=== PATIENT | female | born 2000 | race Caucasian/White ===

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

== ENCOUNTER 2021-02-09 12:18 | Outpatient (CLI) | payer MEDICAID, SELFPAY ==
[2021-02-09 12:28] VITALS: RESP 18; TEMP 36.4
[2021-02-09 12:29] VITALS: BMI 39.1
[2021-02-09 12:35] VITALS: BP 108/63; PULSE 90; RESP 18; TEMP 36.4
[2021-02-09 13:00] VITALS: BP 119/78; PULSE 81
--- NOTE | 2021-02-09 13:18 | PC.NURSE ---
Dr Hope called and reported sending pt over to Actim Prom testing. Orders to do actim prom, nst and call Dr Hope with results
[2021-02-09 13:20] VITALS: BP 125/56; PULSE 83
[2021-02-09 13:25] LABS: Actim Prom Negative
== END 2021-02-09 13:43 | disposition home or self-care (01) ==
LOC: OPOB 12:21 → OBGYN 13:29
PROVIDERS: Absent Provider Obstetrics & Gynecology; Visit Provider Obstetrics & Gynecology
DX: O26.899 Other specified pregnancy related conditions, unspecified trimester (principal); Z3A.00 Weeks of gestation of pregnancy not specified; N89.8 Other specified noninflammatory disorders of vagina
CPT/HCPCS: 59025; 80307; 82950; 84112; 84315; 85025; 87481; 87491; 87512; 87591; 87661; 87798; 87799; 99211

== ENCOUNTER 2021-03-03 13:20 | Outpatient (CLI) | payer MEDICAID, SELFPAY ==
[2021-03-03] VITALS (8 sets, daily range): BP systolic 100–118; BP diastolic 55–64; PULSE 81–106; RESP 18; TEMP 35.8; BMI 40.3
[2021-03-03 14:11] LABS: Basophils % 0.2 %; Eosinophils # 0.1 10^3/uL (0.0-0.8); Eosinophils % 0.4 %; Hematocrit 33.3 % (37.0-47.0); Hemoglobin 11.1 g/dL (11.5-15.3); Lymphocytes # 2.3 10^3/uL (1.5-6.5); Lymphocytes % 16.6 %; Mean Corpuscular HGB Conc 33.3 g/dL (30.0-36.0); Mean Corpuscular Hemoglobin 29.7 pg (28.0-34.0); Mean Platelet Volume 11.3 fL (7.4-10.4); Monocytes # 0.6 10^3/uL (0.2-0.9); Monocytes % 4.6 %; Neutrophils % 77.7 %; Nucleated Red Blood Cells % 0 %; Platelet Count 255 10^3/cmm (130-400); Red Blood Count 3.74 10^6/uL (4.1-5.3); Red Cell Distribution Width 12.9 % (12.1-15.1); White Blood Count 13.9 10^3/uL (4.5-13.0)
[2021-03-03 14:41] LABS: Alanine Aminotransferase 8 U/L (0-33); Albumin Level 3.7 g/dL (3.5-5.2); Alkaline Phosphatase 128 IU/L (35-105); Anion Gap 12.9 (5-19); Aspartate Amino Transferase 13 U/L (0-32); Blood Urea Nitrogen 4 mg/dL (6-20); Calcium 8.7 mg/dL (8.5-10.5); Carbon Dioxide 26 mmol/L (22-29); Chloride 102 mmol/L (98-107); Globulin 3.3 g/dL (1.3-4.6); Glomerular Filtration Rate 205.6 mL/min (90-130); Glucose 93 mg/dL (65-115); Osmolality Calculated 281 mOsm/kg (285-295); Potassium 3.9 mmol/L (3.5-5.1); Sodium 137 mmol/L (136-145); Total Bilirubin 0.3 mg/dL (0.15-1.2); Uric Acid 2.9 mg/dL (2.4-5.7)
[2021-03-03 14:49] LABS: Add Urine Microscopic? YES; Bilirubin Urine Neg (Negative); Blood Urine Neg (Negative); Glucose Urine UA Norm (Normal); Ketones Urine Negative (Negative); Leukocyte Esterase Urine Trace (Negative); Nitrate Urine Negative (Negative); Protein Urine Neg (Negative); Specific Gravity, Urine 1.015 (1.005-1.030); Urine Appearance SL Hazy (CLEAR); Urine Color Yellow (Yellow); Urobilinogen Urine 1 mg/dL (Negative); pH Urine 5 (5-7)
[2021-03-03 15:11] LABS: Urine Creatinine 138 mg/dL (28-217); Urine Protein Random 10 mg/dL
[2021-03-03 15:14] LABS: UPRO/UCREAT Ratio 0.07 mg/mg CR
[2021-03-03 15:22] LABS: Bacteria Urine 1+ /hpf; Mucus Urine 1+ /hpf; RBC Urine 0-4 /hpf (0-2); Squamous Epithelial Cell Urine 15-25 /hpf (0-5)
== END 2021-03-03 15:40 | disposition home or self-care (01) ==
LOC: OPOB 13:26 → OBGYN 13:27
PROVIDERS: Visit Provider Obstetrics & Gynecology
DX: O16.9 Unspecified maternal hypertension, unspecified trimester (principal); Z3A.00 Weeks of gestation of pregnancy not specified
CPT/HCPCS: 59025; 80053; 81000; 81001; 82570; 84156; 84550; 85025; 99211

== ENCOUNTER → 2021-03-10 11:10 | Outpatient (BNVA) | payer MEDICAID, SELFPAY | PROVIDERS: Visit Provider Obstetrics & Gynecology | DX: O09.219 Supervision of pregnancy with history of pre-term labor, unspecified trimester (principal); Z3A.00 Weeks of gestation of pregnancy not specified | CPT/HCPCS: 81000 ==

== ENCOUNTER 2021-03-24 17:53 | Outpatient (CLI) | payer MEDICAID, SELFPAY ==
[2021-03-24 17:50] VITALS: BMI 40.3
[2021-03-24 18:02] VITALS: TEMP 36.2
[2021-03-24 18:03] VITALS: BP 115/69; PULSE 118
--- NOTE | 2021-03-24 18:20 | USR_ITS ---
PROCEDURE INFORMATION: Exam: US Biophysical Profile Without Non-Stress Test Exam date and time: 03/24/2021 6:30 PM Age: 20 years old Clinical indication: status abnormalities: ; movements, decreased; Fetus 1; Third trimester (28 wks 0 days until delivery); ; Additional info: Decreased movement TECHNIQUE: Imaging protocol: US biophysical profile without non-stress testing. COMPARISON: US OB >= 14 weeks fetus [facility] 12/29/2020 4:08 PM FINDINGS: BIOPHYSICAL PROFILE: Breathin/2 Gross body movements: 2/2 tone: 2/2 Qualitative amniotic fluid: 2/2 Biophysical Profile Score: 8/8 US/US OB BPP wo NST 60394 IMPRESSION: 1. Biophysical profile score is 8 out of 8. 2. heart beat 144 bpm.
[2021-03-24 18:25] VITALS: BP 105/68; PULSE 109
[2021-03-24 18:33] VITALS: BP 103/69; PULSE 88
[2021-03-24 18:48] VITALS: BP 104/67; PULSE 86
[2021-03-24 18:56] LABS: Basophils % 0.2 %; Eosinophils # 0.1 10^3/uL (0.0-0.8); Eosinophils % 0.5 %; Hematocrit 34.2 % (37.0-47.0); Hemoglobin 11.1 g/dL (11.5-15.3); Lymphocytes # 2.1 10^3/uL (1.5-6.5); Lymphocytes % 16.7 %; Mean Corpuscular HGB Conc 32.5 g/dL (30.0-36.0); Mean Corpuscular Hemoglobin 28.9 pg (28.0-34.0); Mean Corpuscular Volume 89.1 fL (81-99); Mean Platelet Volume 11.3 fL (7.4-10.4); Monocytes # 0.7 10^3/uL (0.2-0.9); Monocytes % 5.8 %; Neutrophils % 76.2 %; Nucleated Red Blood Cells % 0 %; Platelet Count 239 10^3/cmm (130-400); Red Blood Count 3.84 10^6/uL (4.1-5.3); Red Cell Distribution Width 12.9 % (12.1-15.1); White Blood Count 12.5 10^3/uL (4.5-13.0)
[2021-03-24 19:16] LABS: Alanine Aminotransferase 10 U/L (0-33); Albumin Level 3.6 g/dL (3.5-5.2); Alkaline Phosphatase 130 IU/L (35-105); Aspartate Amino Transferase 14 U/L (0-32); Blood Urea Nitrogen 5 mg/dL (6-20); Calcium 8.7 mg/dL (8.5-10.5); Carbon Dioxide 23 mmol/L (22-29); Chloride 101 mmol/L (98-107); Globulin 3.6 g/dL (1.3-4.6); Glomerular Filtration Rate 286.6 mL/min (90-130); Glucose 106 mg/dL (65-115); Osmolality Calculated 278 mOsm/kg (285-295); Sodium 135 mmol/L (136-145); Total Bilirubin 0.3 mg/dL (0.15-1.2); Total Protein 7.2 g/dL (6.6-8.7); Uric Acid 2.5 mg/dL (2.4-5.7)
[2021-03-24 19:26] LABS: Add Urine Microscopic? NO; Charge for UA Resulting for Rev
[2021-03-24 19:28] LABS: Urine Appearance Clear (CLEAR); Urine Color Yellow (Yellow); pH Urine 5 (5-7)
[2021-03-24 19:29] LABS: Bilirubin Urine 1+ (Negative); Blood Urine Neg (Negative); Glucose Urine UA Norm (Normal); Ketones Urine 1+ (Negative); Leukocyte Esterase Urine Trace (Negative); Nitrate Urine Negative (Negative); Protein Urine Trace (Negative); Urobilinogen Urine 8 mg/dL (Negative)
[2021-03-24 19:48] LABS: Urine Creatinine 229 mg/dL (28-217)
[2021-03-24 19:49] LABS: UPRO/UCREAT Ratio 0.14 mg/mg CR; Urine Protein Random 33 mg/dL
[2021-03-24 20:00] VITALS: BP 104/67; PULSE 86; RESP 16; TEMP 36.3
== END 2021-03-24 20:05 | disposition home or self-care (01) ==
LOC: OPOB 17:54 → OBGYN 17:55
PROVIDERS: Obstetrics & Gynecology; Visit Provider Obstetrics & Gynecology
DX: O26.899 Other specified pregnancy related conditions, unspecified trimester (principal); Z3A.00 Weeks of gestation of pregnancy not specified; Z03.89 Encounter for observation for other suspected diseases and conditions ruled out
CPT/HCPCS: 59025; 76819; 80053; 81000; 81003; 82570; 84156; 84550; 85025; 99211

== ENCOUNTER → 2021-04-01 10:00 | Outpatient (BNVA) | payer MEDICAID, SELFPAY | PROVIDERS: Visit Provider Obstetrics & Gynecology | DX: O09.213 Supervision of pregnancy with history of pre-term labor, third trimester (principal); O34.219 Maternal care for unspecified type scar from previous cesarean delivery; F12.90 Cannabis use, unspecified, uncomplicated | CPT/HCPCS: 81000; 87081 ==

== ENCOUNTER → 2021-04-08 10:54 | Outpatient (BNVA) | payer MEDICAID, SELFPAY | PROVIDERS: Visit Provider Obstetrics & Gynecology | DX: O99.323 Drug use complicating pregnancy, third trimester (principal); O09.213 Supervision of pregnancy with history of pre-term labor, third trimester; F12.90 Cannabis use, unspecified, uncomplicated; O34.219 Maternal care for unspecified type scar from previous cesarean delivery; Z3A.36 36 weeks gestation of pregnancy | CPT/HCPCS: 81000 ==

== ENCOUNTER → 2021-04-15 08:12 | Outpatient (BNVA) | payer MEDICAID, SELFPAY | PROVIDERS: Visit Provider Obstetrics & Gynecology | DX: O09.213 Supervision of pregnancy with history of pre-term labor, third trimester (principal); O09.899 Supervision of other high risk pregnancies, unspecified trimester; Z3A.00 Weeks of gestation of pregnancy not specified | CPT/HCPCS: 81000 ==

== ENCOUNTER 2021-04-18 21:17 | Outpatient (CLI) | payer MEDICAID, SELFPAY ==
[2021-04-18 21:33] VITALS: BP 121/76; PULSE 114
[2021-04-18 21:55] VITALS: BMI 41.3
[2021-04-18 22:11] VITALS: BP 135/76; PULSE 107
[2021-04-18 22:15] VITALS: BP 135/76; PULSE 107; RESP 18
[2021-04-18 22:31] LABS: Nitrazine Paper, PH Negative
== END 2021-04-18 22:21 | disposition home or self-care (01) ==
LOC: OPOB 21:19 → OBGYN 21:20
PROVIDERS: Visit Provider Obstetrics & Gynecology
DX: O26.899 Other specified pregnancy related conditions, unspecified trimester (principal); Z3A.00 Weeks of gestation of pregnancy not specified; N89.8 Other specified noninflammatory disorders of vagina
CPT/HCPCS: 59025; 83986; 99211

== ENCOUNTER → 2021-04-22 09:54 | Outpatient (BNVA) | payer MEDICAID, SELFPAY | PROVIDERS: Visit Provider Obstetrics & Gynecology | DX: O34.219 Maternal care for unspecified type scar from previous cesarean delivery (principal); O09.213 Supervision of pregnancy with history of pre-term labor, third trimester; F12.90 Cannabis use, unspecified, uncomplicated; O99.323 Drug use complicating pregnancy, third trimester; Z3A.38 38 weeks gestation of pregnancy; Z20.822 Contact with and (suspected) exposure to COVID-19 | CPT/HCPCS: 81000; 87635 ==

== ENCOUNTER 2021-04-27 05:35 | Inpatient (IN) | payer MEDICAID, SELFPAY ==
--- NOTE | 2021-04-22 12:01 | P.ANESASSM_ITS ---
Pre-Anesthetic Assessment Pre-Anesthetic Assessment: Height/Weight: Height 1.68 m Proposed Procedure: Operation Date: 04/27/21 07:00 Proposed Procedures p Section Repeat 70568 O34.219(Not Applicable) - Ying Hope MD Was Beta Tana taken within 24 hours: N/A Was Clonidine taken within 24 hours: N/A Social: Social History: No alcohol and No tobacco Comment: h/o yadira Exam: Pre-Anes Outpt Exam: alert, oriented x 3, clear to auscultation bilaterally and regular rate & rhythm Airway: Submandibular: WNL Cervical ROM: WNL MP: 2 Dentition: Full Additional comments: Tongue ring (asked to remover prior to surgery) History/ROS: No significant history except as noted Anesthetic Plan: ASA status: 2 Anesthesia: Regional (specify below) Other: Discussed labor epidural and SAB Risk of > 500 ml blood loss (7ml/kg in children): Yes, adequate IV access and fluids planned PFSH Anesthesia PFSH: Medical History History of labor Surgical History History of section (11/08/18) LTCS performed for breech presentation at [facility] History of cholecystectomy Family History Grandmother Diabetes maternal Stroke maternal Heart attack maternal Denies family history of Ovarian cyst CAD (coronary artery disease) Clotting disorder Hyperlipidemia Chronic kidney disease (CKD) Breast cancer Anesthesia complication Bleeding disorder Hypertension Female Reproductive History: Date of last menstrual period: 07/26/20 Data Anesthesia Cardiac Studies: No Data to Display
[2021-04-27] VITALS (27 sets, daily range): BP systolic 97–166; BP diastolic 49–86; PULSE 51–97; RESP 15–18; TEMP 36.3–37; O2SAT 98–100; BMI 41.9
[2021-04-27 06:30] LABS: Amphetamines Screen Urine Negative (Negative); Barbiturates Screen Urine Negative (Negative); Benzodiazepines Screen Urine Negative (Negative); Cocaine Screen Urine Negative (Negative); Opiate Screen Urine Negative (Negative); PCP Screen Urine Negative (Negative); THC Screen Urine Negative (Negative)
[2021-04-27 06:35] LABS: Basophils % 0.3 %; Eosinophils # 0.1 10^3/uL (0.0-0.8); Eosinophils % 0.4 %; Hematocrit 31.7 % (37.0-47.0); Hemoglobin 10.3 g/dL (11.5-15.3); Lymphocytes # 2.7 10^3/uL (1.5-6.5); Lymphocytes % 20.9 %; Mean Corpuscular HGB Conc 32.5 g/dL (30.0-36.0); Mean Corpuscular Hemoglobin 27.5 pg (28.0-34.0); Mean Corpuscular Volume 84.8 fL (81-99); Mean Platelet Volume 11.4 fL (7.4-10.4); Monocytes # 0.7 10^3/uL (0.2-0.9); Monocytes % 5.2 %; Neutrophils % 72.7 %; Nucleated Red Blood Cells % 0 %; Platelet Count 244 10^3/cmm (130-400); Red Blood Count 3.74 10^6/uL (4.1-5.3); Red Cell Distribution Width 13.1 % (12.1-15.1); White Blood Count 13.1 10^3/uL (4.5-13.0)
[2021-04-27] MEDS: famotidine 20 mg/2 mL INJ IVP (06:36)
[2021-04-27] MEDS: citric acid-sodium citrate 30 mL UDC PO (06:36)
[2021-04-27] MEDS: lactated ringers 1,000 ML 999 ML IV (06:36)
[2021-04-27] MEDS: metoclopramide 5 mg/mL SDV 2 mL 10 MG IVP (06:36)
--- NOTE | 2021-04-27 06:57 | W.PM.OPSUD ---
Surgery/Procedure H&P Update DATE OF PROCEDURE: April 27, 2021 DATE H&P PERFORMED: 04/22/21 H&P UPDATE INFORMATION: I have reviewed H&P completed within last 30 days, I have examined patient prior to procedure and No changes to prior documentation PLANNED PROCEDURE: Operation Date: 04/27/21 07:00 Proposed Procedures p Section Repeat 12424 O34.219(Not Applicable) - Ying Hope MD
--- NOTE | 2021-04-27 08:04 | PM.OP ---
Operative Report Date of procedure: April 27, 2021 Pre-op Diagnosis: previous x1, breech presentation Post-op diagnosis: same Post-op Diagnosis: IUp at 39 2/7 weeks, same with heart shaped uterus Post-op Findings: term female in cephalic presentation Procedure Done: repeat Specimens removed/disposition: placenta- discarded Pathology: none sent Anesthesia: Other (spinal) Estimated blood loss (mL): 300 IV fluids (mL): 1,600 Urine output (mL): 100 Complications: none Condition: stable Disposition: PACU Brief History: The patient is a at 39 2/7 Procedure: The patient was taken to the operating room where spinal anesthesia was administered and found to be adequate. She was prepped and draped in the normal sterile fashion in the dorsal supine position with a leftward tilt. A Pfannenstiel skin incision was made and carried down to the underlying layer of fascia. The fascia was nicked in the midline and extended laterally with the Corral scissors. The fascia was then tented up and the rectus muscles dissected off sharply. The rectus muscles were and the peritoneum entered bluntly with the digit. The peritoneal incision was extended superiorly and inferiorly with good visualization of the bladder. The Juventino O retractor was placed. It was clear of any bowel or omentum. The bladder flap was created sharply with the Metzenbaum scissors. A low transverse uterine incision was made and carried down to the bag of water. The bag of water was ruptured and the uterine incision extended cephalocaudad. The breech was grasped and brought through the incision, followed by the body and head. The nose and mouth were bulb suctioned. The baby was allowed to rest, while being dried, for 1 minute and then the cord was clamped and cut. The baby was handed to the waiting nurses. The placenta was delivered by expression. The uterus was exteriorized and cleared of all clots and debris. The uterine incision was closed with 0 Vicryl in a running fashion. A second imbricating layer of 3-0 Monocryl was used to close the uterus. The bladder flap was closed with 3-0 Monocryl. There was excellent hemostasis. The Juventino O retractor was removed. The uterus was returned to the abdomen. The peritoneum was closed with 3-0 Monocryl, incorporating the rectus muscle. The fascia was closed with 0 Vicryl in 2 separate sutures overlapping in the midline. The skin was closed with absorbable natali. Apgars on baby 8 at 1 minute and 9 at 5 minutes. weight 8 pounds 12 ounces. Mother and baby were stable post delivery.
[2021-04-27] MEDS: lactated ringers 1,000 ML 125 ML IV (09:05)
[2021-04-27] MEDS: ketorolac 30 mg/mL INJ IVP ×2 (10:23→16:38)
[2021-04-27] MEDS: HYDROcodone-acetaminophen 5-325 mg Tablet PO (14:33)
[2021-04-27] MEDS: docusate sodium 100 mg Capsule PO (16:38)
[2021-04-27] MEDS: sodium chloride 0.9% 500 ML 999 ML IV (16:40)
[2021-04-27] MEDS: dextrose 5%-lactated ringers 1,000 ML 125 ML IV (17:14)
--- NOTE | 2021-04-27 17:20 | PC.NURSE ---
Pt ambulating in hallway and around nurses station x3 laps. Pt tolerated well, had a slight complaint of feeling dizzy but was tolerable and did not effect her ambulation.
[2021-04-27] MEDS: FUROsemide 10 mg/mL SDV 2mL 5 MG IVP (18:39)
[2021-04-27] MEDS: ibuprofen 800 mg tablet PO (20:47)
[2021-04-27 21:15] LABS: Hemoglobin 8.6 g/dL (11.5-15.3); Mean Corpuscular HGB Conc 31.9 g/dL (30.0-36.0); Mean Corpuscular Hemoglobin 27.8 pg (28.0-34.0); Mean Corpuscular Volume 87.4 fL (81-99); Mean Platelet Volume 11.9 fL (7.4-10.4); Platelet Count 196 10^3/cmm (130-400); Red Blood Count 3.09 10^6/uL (4.1-5.3); Red Cell Distribution Width 13.3 % (12.1-15.1); White Blood Count 11.7 10^3/uL (4.5-13.0)
[2021-04-28 04:00] VITALS: BP 111/70; PULSE 73; RESP 17; TEMP 36.9
[2021-04-28] MEDS: HYDROcodone-acetaminophen 5-325 mg Tablet PO ×3 (04:11→12:27)
[2021-04-28] MEDS: docusate sodium 100 mg Capsule PO ×2 (08:05→18:43)
[2021-04-28] MEDS: prenatal vitamin Capsule 1 CAP PO (08:05)
[2021-04-28] MEDS: ibuprofen 800 mg tablet PO ×3 (08:05→20:04)
--- NOTE | 2021-04-28 10:25 | P.PN_ITS ---
Subjective Subjective: Interval history: The patient is doing well this morning. She has had her catheter removed and she has showered. she is tolerating a regular diet, she is ambulating and her pain is well controlled. Medications: Reviewed: Yes Vitals/I&O/Wt Last Vital Signs Temp 98.5 F 04/28/21 04:00 Pulse 73 04/28/21 04:00 Resp 17 04/28/21 04:00 BP 111/70 04/28/21 04:00 Pulse Ox 98 04/27/21 09:50 04/27/21 04/28/21 04/28/21 22:59 06:59 14:59 Output Total 780 / 1680 600 / 2280 400 / 400 Balance -780 / 920 -600 / 320 -400 / -400 Weight last 48 hrs Weight 260 lb Physical Exam Const: COMMON NORMALS: no acute distress, average body habitus, patient oriented x3, no limitations, healthy appearing, alert and well nourished GENERAL APPEARANCE: cooperative, comfortable, well kempt and well developed ORIENTATION/CONSCIOUSNESS: Yes awake, Yes oriented to person, Yes oriented to place and Yes oriented to time Neck/C-Spine: COMMON NORMALS: full ROM and supple Resp: COMMON NORMALS: normal respiratory effort EFFORT & INSPECTION: Yes able to speak in complete sentences GI: COMMON NORMALS: Soft to palpation and non-tender PALPATION: Yes Soft to palpation Extremity: COMMON NORMALS: no clubbing, cyanosis or edema and no calf tenderness Neuro: COMMON NORMALS: patient oriented x3 SENSORIUM/ORIENTATION: Yes alert, Yes oriented to person, Yes oriented to place and Yes oriented to time Psych: APPEARANCE: Yes well kempt Urinary Catheter Management^: Bird: Cath Placed During This Visit: yes, but has since been removed by the nurse Reason for Continuing Indwelling Catheter: Perioperative Use in Selected Surgeries Urinary Catheter Date of Insertion: 04/27/21 Urinary Catheter Time of Insertion: 07:15 Time Urinary Catheter Discontinued: 22:30 Data : 04/27/21 20:59 A&P Assessment and plan (1) state: Status: Acute Attestations Medical Necessity Statement*: The patient had a repeat Coding Level of Care Code Acute Special Education Paraprofessional for Chg Fwd Diagnoses state Z39.2
[2021-04-28 11:13] VITALS: BP 98/65; PULSE 75; RESP 16; TEMP 36.9
[2021-04-28] MEDS: simethicone 80 mg Chew PO ×2 (11:18→18:43)
[2021-04-28 16:25] VITALS: BP 113/70; PULSE 81; RESP 16; TEMP 36.7
[2021-04-28 21:24] VITALS: BP 133/80; PULSE 82; RESP 18; TEMP 36.8
[2021-04-29 00:28] VITALS: RESP 18
[2021-04-29] MEDS: oxyCODONE-APAP 5-325 mg Tablet PO ×2 (00:28→08:30)
[2021-04-29] MEDS: simethicone 80 mg Chew PO (00:28)
[2021-04-29 04:00] VITALS: BP 108/70; PULSE 92; TEMP 36.7; O2SAT 98
--- NOTE | 2021-04-29 07:52 | PM.DCS ---
Discharge Providers Date of Admission: 04/27/21 05:35 Date of Discharge: April 29, 2021 Attending Provider at Admission: Ying Hope MD Attending Provider at Discharge: Ying Hope MD Diagnoses at Discharge Discharge Diagnosis (1) state: Status: Acute Reason for Visit Reason for Visit: repeat c section Hospital Course Hospital Course The patient was admitted for repeat . She did well postoperatively and was ready for discharge on day #2 Physical Exam Urinary Catheter Management^: Bird: Cath Placed During This Visit: yes, but has since been removed by the nurse Reason for Continuing Indwelling Catheter: Perioperative Use in Selected Surgeries Urinary Catheter Date of Insertion: 04/27/21 Urinary Catheter Time of Insertion: 07:15 Time Urinary Catheter Discontinued: 22:30 Discharge Data Vitals: Last Vital Signs Temp 98.1 F 04/29/21 04:00 Pulse 92 04/29/21 04:00 Resp 18 04/29/21 00:28 BP 108/70 04/29/21 04:00 Pulse Ox 98 04/29/21 04:00 Discharge Plan Discharge Patient Disposition: Home Condition: Stable Prescriptions: New hydrocodone-acetaminophen 5-325 mg Tablet 1 tab PO Q4H PRN (Reason: Moderate To Severe Pain) Qty: 30 RF: 0 Continued Vitafol Gummies 3.33 mg iron- 0.33 mg tablet,chewable 1 tab PO BID@ RF: 0 prenat.vits,kyung,[id number] Tablet 1 tab PO DAILY RF: 0 Discharge Orders: Discharge Order (Routine); Ordered 04/29/21 Ordered By: Ying Hope Referrals: Ying Hope MD [Physician] - 05/03/21 2:45 pm (* Your incision check appointment is on 05/03/2021 at 2:45pm * Your 6 week appointment is on 06/07/2021 at 1:30pm) Patient Instructions: Depression (GEN), Pre-eclampsia and Eclampsia (DC), Bleeding (DC), OB WHC, OB Discharge Report, OB Food/Drug Interaction Guide, Opioid Safety, OB Home Care, OB Proud Parent Packet Discharge Attestations Time Spent in Discharge Care*: less than 30 min Quality Metrics Clinical Quality Measures During this hospital stay, did patient experience: None Coding Level of Care Code Acute Chg FW DC note Diagnoses state Z39.2
[2021-04-29 08:30] VITALS: RESP 17
[2021-04-29] MEDS: prenatal vitamin Capsule 1 CAP PO (08:30)
[2021-04-29] MEDS: docusate sodium 100 mg Capsule PO (08:30)
[2021-04-29] MEDS: ibuprofen 800 mg tablet PO (08:30)
[2021-04-29 10:58] VITALS: BP 114/73; PULSE 78; RESP 15; TEMP 36.9; O2SAT 95
== END 2021-04-29 11:29 | disposition home or self-care (01) | DRG 788 ==
PROVIDERS: Admitting Provider Obstetrics & Gynecology; Visit Provider Obstetrics & Gynecology
PROC: 10D00Z1 Extraction of Products of Conception, Low, Open Approach (ICD-10-PCS; CPT 59514; principal; 2021-04-27 07:00)
DX: O34.211 Maternal care for low transverse scar from previous cesarean delivery (principal); O32.1XX0 Maternal care for breech presentation, not applicable or unspecified; Z3A.39 39 weeks gestation of pregnancy; Z37.0 Single live birth; Z87.51 Personal history of pre-term labor
CPT/HCPCS: 36415; 51702; 59025; 59409; 80306; 85025; 85027; 96374; 96375; J1885; J1940; J2274; J2370; J2405; J2765; J3490; J7040

== ENCOUNTER 2022-06-08 18:06 | Emergency (ER) | payer MEDICAID, SELFPAY ==
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
[2022-06-08 18:11] VITALS: BP 133/97; PULSE 63; RESP 16; TEMP 36.8; O2SAT 100; BMI 35.5
[2022-06-08 18:19] VITALS: PULSE 58
[2022-06-08 18:21] VITALS: BP 133/97; PULSE 63; RESP 16; TEMP 36.8; O2SAT 100
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
--- NOTE | 2022-06-08 18:44 | XRR_ITS ---
PROCEDURE INFORMATION: Exam: XR Left Foot Exam date and time: 06/08/2022 6:50 PM Age: 21 years old Clinical indication: Pain; Foot; Left; Additional info: Injury TECHNIQUE: Imaging protocol: Radiologic exam of the Left foot. Views: 3 or more views. COMPARISON: CR (LOW EXM, ) 06/08/2022 6:19 PM FINDINGS: Bones/joints: Transverse fractures through the proximal diaphyses of the 1st and 2nd metatarsal. There is also a transverse fracture through the medial cuneiform. There is malalignment of the 1st and 2nd metatarsal space. Soft tissues: Soft tissue swelling with wounds along the dorsal foot. XR/XR foot LT min 3V* [id number] IMPRESSION: Fractures through the proximal 1st and 2nd metatarsals as well as the medial cuneiform. There is malalignment of the 1st and 2nd metatarsal space which raises suspicion for underlying Lisfranc injury.
[2022-06-08] MEDS: ceFAZolin 2,000 mg SDV 2000 MG IVP (19:04)
[2022-06-08 20:27] VITALS: BP 124/82; PULSE 83; RESP 18; O2SAT 99
[2022-06-08 20:55] VITALS: BP 138/75; PULSE 75; O2SAT 100
--- NOTE | 2022-06-09 09:54 | DCPLANNER ---
Addendum entered by Marah Lantigua 06/15/22 11:13: Patient had a follow up appointment scheduled for 06.13.22 with ortho - patient did attend appointment. Addendum entered by Marah Lantigua 06/10/22 13:44: Patient has a follow up appointment scheduled for Monday, June 13, 2022 at 9:[address] Sanford at ortho. Clinic will call patient with appointment information. Original Note: trauma program manager had message to schedule a follow up appointment for patient with ortho. trauma program manager sent patients information to the front office staff at ortho. Patients information will be printed and reviewed. Clinic will call patient with appointment information.
== END 2022-06-08 20:45 | disposition home or self-care (01) ==
PROVIDERS: Emergency Provider Emergency Medicine
DX: S92.312A Displaced fracture of first metatarsal bone, left foot, initial encounter for closed fracture (principal); S92.322A Displaced fracture of second metatarsal bone, left foot, initial encounter for closed fracture; S92.242A Displaced fracture of medial cuneiform of left foot, initial encounter for closed fracture; S91.312A Laceration without foreign body, left foot, initial encounter; V86.65XA Passenger of 3- or 4- wheeled all-terrain vehicle (ATV) injured in nontraffic accident, initial encounter
CPT/HCPCS: 12004; 29515; 73610; 73630; 96374; 99284; E0114

== ENCOUNTER 2022-06-12 12:26 | Emergency (ER) | payer MEDICAID, SELFPAY ==
[2022-06-12 12:36] VITALS: PULSE 92; RESP 14; TEMP 36.8; O2SAT 98; BMI 35.5
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
== END 2022-06-12 13:13 | disposition home or self-care (01) ==
PROVIDERS: Emergency Provider Physician Assistant
DX: S92.902A Unspecified fracture of left foot, initial encounter for closed fracture (principal); V86.99XA Unspecified occupant of other special all-terrain or other off-road motor vehicle injured in nontraffic accident, initial encounter
CPT/HCPCS: 99283

== ENCOUNTER 2022-06-30 12:41 | Day surgery (SDC) | payer MEDICAID, SELFPAY ==
[2022-06-29 11:37] VITALS: BMI 35.5
[2022-06-30] VITALS (8 sets, daily range): BP systolic 108–141; BP diastolic 70–94; PULSE 73–110; RESP 16–18; TEMP 36.7–37.6; O2SAT 95–100
--- NOTE | 2022-06-30 | SCC_ITS ---
Procedure done: 1. Open reduction internal fixation left first metatarsal CPT 50426 2. Open reduction internal fixation left second metatarsal CPT 92466 3 minutes 47 seconds of fluoroscopic guidance, for a cumulative dose of 5.282 mGy, was provided to Dr. Sanford by the radiology department. C-arm images of the LEFT foot were saved for the patient's permanent record. [facility]
[2022-06-30] MEDS: sodium chloride 0.9% 1,000 ML 30 ML IV (13:08)
[2022-06-30] MEDS: CELEcoxib 200 mg Capsule 400 MG PO (13:10)
[2022-06-30] MEDS: gabapentin 300 mg Capsule PO (13:10)
[2022-06-30 13:20] LABS: OR HCG Qualitative Urine Negative (Negative)
--- NOTE | 2022-06-30 13:41 | SUR.PREOP ---
1335-time out was completed at bedside with Dr. Kaur. Block was performed on patient in preop room. Patient tolerated well. VS remained within normal limits.
--- NOTE | 2022-06-30 13:41 | ANES.PREANE2 ---
Pre-Anesthetic Assessment Height/Weight: Height 1.68 m Weight 99.79 kg Temp Pulse Resp BP Pulse Ox O2 Del Method 99.7 F H 73 17 141/79 100 06/30/22 12:50 06/30/22 12:50 06/30/22 12:50 06/30/22 12:50 06/30/22 12:50 06/30/22 12:55 Preop Diagnosis: Left foot first and second metatarsal fractures displaced Operation Date: 06/30/22 13:50 Proposed Procedures p ORIF left first metatarsal CPT 37128. 2. ORIF left second metatarsal CPT 34902. 3. Possible Lisfranc ORIF CPT 66814,S92.312A(Left) - Matthias Sanford DPM Familial anesthetic complications: none Was Beta Tana taken within 24 hours: N/A Was Clonidine taken within 24 hours: N/A Last intake: Intake Last Liquid Date 06/30/22 Last Liquid Time 09:00 Last Solid Date 06/29/22 Last Solid Time 21:00 Social Tobacco (vapes) and No alcohol Exam alert, oriented x 3, clear to auscultation bilaterally and regular rate & rhythm Airway Mallampati: Class I Dentition: chipped Pulmonary Asthma (as child) Anesthetic Plan ASA status: 1 Anesthesia: General and Regional (specify below) (popliteal/adductor) Risk of > 500 ml blood loss (7ml/kg in children): No Medications/Allergies Home Medications Medication Instructions Recorded Confirmed Last Taken Type Knee Scooter #1 ea 06/13/22 06/13/22 Unknown Rx hydrocodone 10 mg-acetaminophen 1 tab PO Q6H Post op pain 7 days 06/30/22 06/30/22 Unknown Rx 325 mg tablet #28 tabs Allergies Allergy/AdvReac Type Severity Reaction Status Date / Time No Known Allergies Allergy Verified 06/30/22 12:53 Current Medications Generic Name Dose Route Start Last Admin Trade Name Freq PRN Reason Stop Dose Admin Sodium Chloride 1,000 mls @ 30 mls/hr 06/30/22 12:45 06/30/22 13:08 Sodium Chloride 0.9% IV 07/01/22 12:44 30 mls/hr .Q24H MARVA Administration PFSH Anesthesia Medical History History of labor Surgical History History of section (11/08/18) LTCS performed for breech presentation at [facility] History of cholecystectomy Family History Grandmother Diabetes maternal Stroke maternal Heart attack maternal Denies family history of Ovarian cyst CAD (coronary artery disease) Clotting disorder Hyperlipidemia Chronic kidney disease (CKD) Breast cancer Anesthesia complication Bleeding disorder Hypertension Social History Smoking and tobacco status: never smoked Female Reproductive History Date of last menstrual period: 07/26/20 Data Anesthesia Cardiac Studies: No Data to Display
--- NOTE | 2022-06-30 13:42 | ANES.PROC ---
Anesthesia Procedures Procedure/Date: 06/30/22 Nerve Block ^: Nerve Block 1: Main Anesthesia: general anesthesia Time Out Performed: Yes Consent: requested by attending/covering physician, from patient, risks and benefits reviewed and patient agrees to proceed Nerve block location: adductor canal (L) and popliteal (L) Anesthesia monitors applied: pulse oximetry, EKG, BP cuff and oxygen Nerve block position: supine Anesthetic Used: ropivicaine 0.5% (30 ml) and with decadron (4 mg) Ultrasound used to: recognize landmarks and visualize and ID femerol nerve Nerve Stimulator Used?: No Interscalene/Femoral BLK: 4 stimuplex 21 g needle used for position and inplane approach, visualize local anesthetic spread and no vascular puncture identified Injection: neg aspiration of heme and paresthesia +/- Patient Tolerated Procedure: well Complications: none Additional Comments: 20 ml injected into popliteal space, 10 ml injected into adductor canal
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
[2022-06-30] MEDS: ceFAZolin 2,000 MG in sodium chloride 0.9% (plus) 50 ML 100 MG IV (14:47)
--- NOTE | 2022-06-30 16:34 | XR_ITS ---
WS: [id number] Left foot, 3 views, 06/30/2022 Clinical Data: Post op Comparison: Left foot, 06/08/2022. Findings: There is internal fixation of the fracture of the base of the left first metatarsal with a medial sandra te and screws. There is a long orthopedic pin reducing the fracture of the left second metatarsal. A fiberglass splint encircles the left foot. XR/XR foot LT min 3V* [id number] Impression: Internal fixation of fractures of the bases of the left first and second metata rsals.
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
== END 2022-06-30 17:28 | disposition home or self-care (01) ==
PROVIDERS: Anesthesiology; Visit Provider Podiatrist Foot & Ankle Surgery
PROC: (CPT 28485; principal; 2022-06-30 13:40)
PROC: (CPT 28485; 2022-06-30 13:40)
DX: S92.312A Displaced fracture of first metatarsal bone, left foot, initial encounter for closed fracture (principal); S92.322A Displaced fracture of second metatarsal bone, left foot, initial encounter for closed fracture; W23.0XXA Caught, crushed, jammed, or pinched between moving objects, initial encounter
CPT/HCPCS: 28485 ×2; 73630; 76000; 81025; 84703; C1713; J1100; J1170; J1200; J2250; J2405; J2704; J2795; J3010; J7030

== ENCOUNTER → 2022-07-06 13:18 | Outpatient (BNVA) | payer MEDICAID, SELFPAY | PROVIDERS: Visit Provider Podiatrist Foot & Ankle Surgery | DX: S92.322A Displaced fracture of second metatarsal bone, left foot, initial encounter for closed fracture (principal); S92.312A Displaced fracture of first metatarsal bone, left foot, initial encounter for closed fracture; X58.XXXA Exposure to other specified factors, initial encounter | CPT/HCPCS: 73620; 73630 ==

== ENCOUNTER → 2022-07-13 11:06 | Outpatient (BNVA) | payer MEDICAID, SELFPAY | PROVIDERS: Visit Provider Podiatrist Foot & Ankle Surgery | DX: S92.322A Displaced fracture of second metatarsal bone, left foot, initial encounter for closed fracture (principal); S92.312A Displaced fracture of first metatarsal bone, left foot, initial encounter for closed fracture; X58.XXXA Exposure to other specified factors, initial encounter | CPT/HCPCS: 73630 ==

== ENCOUNTER 2022-07-20 15:52 | Outpatient (CLI) | payer MEDICAID, SELFPAY | END 2022-07-20 15:53 | disposition home or self-care (01) | LOC: SPT 15:52 | PROVIDERS: Visit Provider Podiatrist Foot & Ankle Surgery | DX: Z46.89 Encounter for fitting and adjustment of other specified devices (principal); S92.322D Displaced fracture of second metatarsal bone, left foot, subsequent encounter for fracture with routine healing; S92.312D Displaced fracture of first metatarsal bone, left foot, subsequent encounter for fracture with routine healing; X58.XXXD Exposure to other specified factors, subsequent encounter | CPT/HCPCS: 97760; L4361 ==

== ENCOUNTER → 2022-07-29 13:36 | Outpatient (BNVA) | payer MEDICAID, SELFPAY | PROVIDERS: Visit Provider Podiatrist Foot & Ankle Surgery | DX: S92.322A Displaced fracture of second metatarsal bone, left foot, initial encounter for closed fracture (principal); S92.312A Displaced fracture of first metatarsal bone, left foot, initial encounter for closed fracture; T81.31XA Disruption of external operation (surgical) wound, not elsewhere classified, initial encounter; Y83.8 Other surgical procedures as the cause of abnormal reaction of the patient, or of later complication, without mention of misadventure at the time of the procedure; X58.XXXA Exposure to other specified factors, initial encounter | CPT/HCPCS: 73630 ==

== ENCOUNTER → 2022-08-05 13:23 | Outpatient (BNVA) | payer MEDICAID, SELFPAY | PROVIDERS: Visit Provider Podiatrist Foot & Ankle Surgery | DX: S92.312A Displaced fracture of first metatarsal bone, left foot, initial encounter for closed fracture (principal); T81.31XA Disruption of external operation (surgical) wound, not elsewhere classified, initial encounter; Y83.8 Other surgical procedures as the cause of abnormal reaction of the patient, or of later complication, without mention of misadventure at the time of the procedure; X58.XXXA Exposure to other specified factors, initial encounter; S92.322A Displaced fracture of second metatarsal bone, left foot, initial encounter for closed fracture | CPT/HCPCS: 73630 ==

== ENCOUNTER → 2022-08-22 11:05 | Outpatient (BNVA) | payer MEDICAID, SELFPAY | PROVIDERS: Visit Provider Podiatrist Foot & Ankle Surgery | DX: L97.329 Non-pressure chronic ulcer of left ankle with unspecified severity (principal); L97.529 Non-pressure chronic ulcer of other part of left foot with unspecified severity; S92.322A Displaced fracture of second metatarsal bone, left foot, initial encounter for closed fracture; S92.312A Displaced fracture of first metatarsal bone, left foot, initial encounter for closed fracture; X58.XXXA Exposure to other specified factors, initial encounter | CPT/HCPCS: 73630 ==

== ENCOUNTER → 2022-12-14 10:00 | Outpatient (BNVA) | payer MEDICAID, SELFPAY | PROVIDERS: Visit Provider Nurse Practitioner Women's Health | DX: Z01.419 Encounter for gynecological examination (general) (routine) without abnormal findings (principal); Z12.4 Encounter for screening for malignant neoplasm of cervix | CPT/HCPCS: 87491; 87591; 87661; 88175 ==

== ENCOUNTER → 2024-01-05 13:53 | Outpatient (BNVA) | payer MEDICAID, SELFPAY | PROVIDERS: Visit Provider Emergency Medicine | DX: R50.9 Fever, unspecified (principal) | CPT/HCPCS: 87400 ==

== ENCOUNTER → 2024-08-01 13:04 | Outpatient (BNVA) | payer MEDICAID, SELFPAY | PROVIDERS: Visit Provider Nurse Practitioner Women's Health | DX: O09.899 Supervision of other high risk pregnancies, unspecified trimester (principal); Z3A.00 Weeks of gestation of pregnancy not specified; N91.2 Amenorrhea, unspecified | CPT/HCPCS: 76805; 80307; 81025; 86592; 86762; 86803; 86850; 86900; 87086; 87340; 87491; 87591; 87806 ==

== ENCOUNTER → 2024-09-23 13:56 | Outpatient (BNVA) | payer MEDICAID, SELFPAY | PROVIDERS: Visit Provider Obstetrics & Gynecology | DX: O09.213 Supervision of pregnancy with history of pre-term labor, third trimester (principal); Z3A.00 Weeks of gestation of pregnancy not specified | CPT/HCPCS: 81000; 82950 ==

== ENCOUNTER → 2024-10-07 10:26 | Outpatient (BNVA) | payer MEDICAID, SELFPAY | PROVIDERS: Visit Provider Obstetrics & Gynecology | DX: O34.219 Maternal care for unspecified type scar from previous cesarean delivery (principal); O09.213 Supervision of pregnancy with history of pre-term labor, third trimester; Z3A.00 Weeks of gestation of pregnancy not specified | CPT/HCPCS: 76816; 84315 ==

== ENCOUNTER 2024-10-26 15:35 | Outpatient (CLI) | payer MEDICAID, SELFPAY ==
[2024-10-26] VITALS (8 sets, daily range): BP systolic 109–132; BP diastolic 59–81; PULSE 75–89; RESP 15; BMI 33.9
[2024-10-26 16:44] LABS: Bilirubin Urine Negative (Negative); Blood Urine Negative (Negative); Glucose Urine UA Negative (Normal); Ketones Urine Trace (Negative); Leukocyte Esterase Urine Trace (Negative); Nitrate Urine Negative (Negative); Protein Urine Negative (Negative); Specific Gravity, Urine 1.023 (1.005-1.030); Urine Appearance Clear (CLEAR); Urine Color Yellow (Yellow)
[2024-10-26 16:47] LABS: Bacteria Urine None Seen /hpf; RBC Urine 0-2 /hpf (0-2); WBC Urine 0-5 /hpf (0-5)
[2024-10-26] MEDS: ceFAZolin 1,000 mg SDV 1000 MG IVP (17:17)
== END 2024-10-26 17:30 | disposition home or self-care (01) ==
LOC: OPOB 15:38 → OBGYN 15:39
PROVIDERS: Obstetrics & Gynecology; Visit Provider Obstetrics & Gynecology
DX: O26.899 Other specified pregnancy related conditions, unspecified trimester (principal); Z3A.00 Weeks of gestation of pregnancy not specified; N89.8 Other specified noninflammatory disorders of vagina
CPT/HCPCS: 36415; 59025; 81001; 99211; J0690

== ENCOUNTER → 2024-11-04 12:32 | Outpatient (BNVA) | payer MEDICAID, SELFPAY | PROVIDERS: Visit Provider Nurse Practitioner Women's Health | DX: Z34.80 Encounter for supervision of other normal pregnancy, unspecified trimester (principal) | CPT/HCPCS: 76816 ==

== ENCOUNTER → 2024-11-18 14:36 | Outpatient (BNVA) | payer MEDICAID, SELFPAY | PROVIDERS: Visit Provider Obstetrics & Gynecology | DX: O09.213 Supervision of pregnancy with history of pre-term labor, third trimester (principal); Z3A.00 Weeks of gestation of pregnancy not specified | CPT/HCPCS: 84315; 87081 ==

== ENCOUNTER → 2024-11-25 13:46 | Outpatient (BNVA) | payer MEDICAID, SELFPAY | PROVIDERS: Visit Provider Obstetrics & Gynecology | DX: O09.213 Supervision of pregnancy with history of pre-term labor, third trimester (principal); Z3A.00 Weeks of gestation of pregnancy not specified | CPT/HCPCS: 84315 ==

== ENCOUNTER 2024-11-28 10:05 | Outpatient (CLI) | payer MEDICAID, SELFPAY ==
[2024-11-28 10:19] VITALS: BP 123/72; PULSE 72
[2024-11-28 10:27] VITALS: BMI 34.7
[2024-11-28 10:28] VITALS: RESP 15
[2024-11-28 10:39] VITALS: BP 105/58; PULSE 68
[2024-11-28 10:46] VITALS: BP 105/58; PULSE 68; RESP 16
[2024-11-28 14:35] LABS: Nitrazine Paper, PH Negative
== END 2024-11-28 10:47 | disposition home or self-care (01) ==
LOC: OPOB 10:10 → OBGYN 10:11
PROVIDERS: Obstetrics & Gynecology; Visit Provider Obstetrics & Gynecology
DX: O26.899 Other specified pregnancy related conditions, unspecified trimester (principal); Z3A.00 Weeks of gestation of pregnancy not specified; N89.8 Other specified noninflammatory disorders of vagina
CPT/HCPCS: 59025; 83986; 99211

== ENCOUNTER → 2024-12-02 13:57 | Outpatient (BNVA) | payer MEDICAID, SELFPAY | PROVIDERS: Visit Provider Obstetrics & Gynecology | DX: Z34.90 Encounter for supervision of normal pregnancy, unspecified, unspecified trimester (principal) | CPT/HCPCS: 84315 ==

== ENCOUNTER 2024-12-05 07:10 | Inpatient (IN) | payer MEDICAID, SELFPAY ==
--- NOTE | 2024-11-26 12:15 | P.ANESASSM_ITS ---
Pre-Anesthetic Assessment Height/Weight: Height 1.68 m Operation Date: 12/05/24 07:20 Proposed Procedures p Section Repeat With Tubal 50161, 49598, O34.219, Z30.2(Bilateral) - Rufino Aldrich MD Familial anesthetic complications: None Social No alcohol and No tobacco Exam alert, oriented x 3, clear to auscultation bilaterally and regular rate & rhythm Anesthetic Plan ASA status: 2 Anesthesia: Regional (specify below) Other: spinal Risk of > 500 ml blood loss (7ml/kg in children): Yes, adequate IV access and fluids planned Medications/Allergies Home Medications ?Medication ?Instructions ?Recorded ?Confirmed ?Last Taken ?Type [id number] 400 mcg-om3 35 mg-dha 25 tab PO 08/07/2401/14 Unknown History mg-epa 5 mg-fish oil chewable tablet Allergies Allergy/AdvReac Type Severity Reaction Status Date / Time No Known Allergies Allergy Verified 11/25/24 14:03 [facility] Anesthesia Medical History History of labor Surgical History History of section (11/08/18) LTCS performed for breech presentation at [facility] History of cholecystectomy Family History Grandmother Diabetes maternal Stroke maternal Heart attack maternal Denies family history of Ovarian cyst CAD (coronary artery disease) Clotting disorder Hyperlipidemia Chronic kidney disease (CKD) Breast cancer Anesthesia complication Bleeding disorder Hypertension Social History Smoking and tobacco/nicotine status: former use of tobacco/nicotine Data Anesthesia Cardiac Studies: No Data to Display
[2024-12-05] VITALS (32 sets, daily range): BP systolic 90–151; BP diastolic 26–88; PULSE 52–184; RESP 15–16; TEMP 36.3–36.7; O2SAT 96–100; BMI 34.5
--- NOTE | 2024-12-05 03:58 | PM.OBGYHP ---
Providers/Chief Complaint Admitting Physician: Rufino Aldrich MD Primary HOOF TRIMMER: Rufino Aldrich MD Chief Complaint: Epi Consult HPI HOOF TRIMMER History of Present Illness Neo Monge is a 24 year old female EDC December 12, 2024 At 39 w 0 d No complications h/o c-sections x two now admitted for repeat No c/o + movements Medications/Allergies Home Medications ?Medication ?Instructions ?Recorded ?Confirmed ?Last Taken ?Type [id number] 400 mcg-om3 35 mg-dha 25 tab PO 08/07/24 12/02/24 Unknown History mg-epa 5 mg-fish oil chewable tablet Allergies Allergy/AdvReac Type Severity Reaction Status Date / Time No Known Allergies Allergy Verified 12/02/24 14:08 PFS HOOF TRIMMER PFSH: Medical History History of labor Surgical History History of section (11/08/18) LTCS performed for breech presentation at [facility] History of cholecystectomy Family History Grandmother Diabetes maternal Stroke maternal Heart attack maternal Denies family history of Ovarian cyst CAD (coronary artery disease) Clotting disorder Hyperlipidemia Chronic kidney disease (CKD) Breast cancer Anesthesia complication Bleeding disorder Hypertension Social History Smoking and tobacco/nicotine status: former use of tobacco/nicotine Other Female Reproductive History: Hx Age of Menarche: 14 History History History 3 Term 1 1 Miscarriages/Ectopic 0 Living Children 2 Care KHLOE Calculator Estimated Delivery Date Method Current WG Current Estimate 12/12/24 LMP (Uncertain) 39w 0d Other Estimates 12/01/24 Ultrasound #1 40w 4d Specific Issues/Plans LATE TO CARE: First visit at ~21 weeks Hx of X2: Primary for breech presentation, repeat in 2nd MARIJUANA USE HX of LABOR: labor in first and second that was successfully stopped and delivered at 37 and 39 weeks via Physical Exam Narrative: Weight 215 lbs; 5?6? VS normal General comfortable, awake, alert Lungs: clear Cor: RRR Abd: nontender FH 38 cm FHTs normal Ext: no edema Results Labs OB ([facility]): Obstetrics US 11/04/24 Blood Type O Positive 08/01/24 Antibody Screen Negative 08/01/24 Hct 36.1 % (36-47) 08/01/24 Hgb 12.20 g/dL (11.27-16.99) 08/01/24 Rho(D) Type Rh positive 08/01/24 Plt Count 156 10^3/cmm (157-399) L 08/01/24 Hep Bs Antigen Non-reactive (Nonreactive) 08/01/24 Hepatitis C Antibody Non-reactive (Nonreactive) 08/01/24 Rubella IgG Antibody 39.3 IU/mL (0.0-10.0) H 08/01/24 RPR Nonreactive (Nonreactive) 08/01/24 HIV 1&2 Ab & HIV 1 Ag Non-reactive (Non-Reactiv) 08/01/24 C.trachomatis RNA (TMA) Not detected (NOT DETECTED) 08/01/24 N.gonorrhoeae RNA (TMA) Not detected (NOT DETECTED) 08/01/24 T. vaginalis Amp RNA Not detected (NOT DETECTED) 08/01/24 Chlamydia/GC Comment See note 08/01/24 Glucose 1 Hr 50 gm 86 mg/dL (85-140) 09/23/24 HCG, Qual Positive (Negative) H 08/01/24 Urine Opiates Screen Negative ng/mL (Negative) 08/01/24 Ur Barbiturates Screen Negative ng/mL (Negative) 08/01/24 Ur Phencyclidine Scrn Negative ng/mL (Negative) 08/01/24 Ur Amphetamines Screen Negative ng/mL (Negative) 08/01/24 U Benzodiazepines Scrn Negative ng/mL (Negative) 08/01/24 Urine Cocaine Screen Negative ng/mL (Negative) 08/01/24 U Marijuana (THC) Screen Positive ng/mL (Negative) H 08/01/24 Micro Urine Specimen 08/01/24 A&P Assessment and plan (1) : 39 w 0 d Doing well h/o c-sections x two Admitted for repeat Procedure and risks explained Risks include, but not limited to, infection, bleeding, injury to internal organs, anesthesia, blood transfusions. Patient understands and wants to proceed Qualifiers: Weeks of gestation: 20 weeks Qualified Code(s): Z3A.20 - 20 weeks gestation of PDMP PDMP Reviewed: Not Reviewed Attestations Medical Necessity Statement*: patient at 39 weeks with h/o c-sections x two, admitted for repeat Coding Level of Care Code Acute Code for Chg Fwd Diagnoses 20 weeks gestation of Z3A.20 Weeks of gestation: 20 weeks Time Spent (min) 20
[2024-12-05 07:46] LABS: Basophils % 0.4 %; Eosinophils # 0.1 10^3/uL (0.0-0.8); Eosinophils % 0.9 %; Hematocrit 34.1 % (36-47); Lymphocytes # 2.5 10^3/uL (0.8-4.8); Lymphocytes % 23.7 %; Mean Corpuscular HGB Conc 33.1 g/dL (30-55); Mean Corpuscular Hemoglobin 29.6 pg (27-33); Mean Corpuscular Volume 89.3 fl (85-98); Monocytes # 0.5 10^3/uL (0.2-0.9); Monocytes % 5.1 %; Neutrophils # 7.42 10^3/uL (1.8-7.7); Neutrophils % 69.4 %; Nucleated Red Blood Cells % 0 %; Platelet Count 197 10^3/cmm (157-399); Red Blood Count 3.82 10^6/uL (3.85-5.65); Red Cell Distribution Width 12.9 % (12.1-15.1); White Blood Count 10.68 10^3/uL (3.29-11.43)
--- NOTE | 2024-12-05 08:10 | ANES.PREANE2 ---
Pre-Anesthetic Assessment Height/Weight: Height 5 ft 6 in Weight 214 lb Pulse Resp BP O2 Del Method 63 15 119/73 Room Air 12/05/24 07:30 12/05/24 07:35 12/05/24 07:30 12/05/24 07:35 Preop Diagnosis: Planned Operation Date: 12/05/24 10:00 Proposed Procedures p Section Repeat With Tubal 32185, 64032, O34.219, Z30.2(Bilateral) - Rufino Alrdich MD Was Beta Tana taken within 24 hours: N/A Was Clonidine taken within 24 hours: N/A Social No alcohol and No tobacco Exam alert, oriented x 3, clear to auscultation bilaterally and regular rate & rhythm Airway Submandibular: within normal limits Cervical ROM: within normal limits Mallampati: Class I Dentition: full Anesthetic Plan ASA status: 2 Anesthesia: Regional (specify below) Other: G3, P2 here for planned Patient states that no issues with spinal last time but baby did have issues with severe bradycardia and NPO since yesterday Denies any pulmonary or cardiac issues Labs reviewed from today and acceptable for procedure Plan for routine with spinal Medications/Allergies Home Medications ?Medication ?Instructions ?Recorded ?Confirmed ?Last Taken ?Type [id number] 400 mcg-om3 35 mg-dha 25 tab PO 08/07/24 12/02/24 Unknown History mg-epa 5 mg-fish oil chewable tablet Allergies Allergy/AdvReac Type Severity Reaction Status Date / Time No Known Allergies Allergy Verified 12/02/24 14:08 [facility] Anesthesia Medical History History of labor Surgical History History of section (11/08/18) LTCS performed for breech presentation at [facility] History of cholecystectomy Family History Grandmother Diabetes maternal Stroke maternal Heart attack maternal Denies family history of Ovarian cyst CAD (coronary artery disease) Clotting disorder Hyperlipidemia Chronic kidney disease (CKD) Breast cancer Anesthesia complication Bleeding disorder Hypertension Social History Smoking and tobacco/nicotine status: former use of tobacco/nicotine Female Reproductive History : 2 Data Anesthesia 12/05/24 07:30 Short CBC 12/05/24 Range/Units 07:30 WBC 10.68 (3.29-11.43) 10^3/uL Hgb 11.30 (11.27-16.99) g/dL Hct 34.1 L (36-47) % MCV 89.3 (85-98) fl Plt Count 197 (157-399) 10^3/cmm Neut % (Auto) 69.4 % Neut # (Auto) 7.42 (1.8-7.7) 10^3/uL Cardiac Studies: No Data to Display
[2024-12-05] MEDS: lactated ringers 1,000 ML 999 ML IV (09:13)
[2024-12-05] MEDS: ceFAZolin 2,000 mg SDV 2000 MG IVP (09:14)
[2024-12-05] MEDS: famotidine 20 mg/2 mL INJ IVP (09:41)
[2024-12-05] MEDS: metoclopramide 5 mg/mL SDV 2 mL 10 MG IVP (09:42)
--- NOTE | 2024-12-05 09:47 | W.PM.OPSUD ---
Surgery/Procedure H&P Update DATE OF PROCEDURE: December 05, 2024 DATE H&P PERFORMED: 12/05/24 CHANGES TO PREVIOUS DOCUMENTATION: patient wants permanent sterilization had confirmed this several times during her visits patient refuses reversible control understands irreversibility of procedure plan repeat and bilateral salpingectomy PREOP DIAGNOSIS: Planned repeat and bilateral salpingectomy PLANNED PROCEDURE: Operation Date: 12/05/24 10:00 Proposed Procedures p Section Repeat With Tubal 34254, 08730, O34.219, Z30.2(Bilateral) - Rufino Aldrich MD
--- NOTE | 2024-12-05 11:55 | ANE.PACU2 ---
Inpatient post-anesthesia follow up: Airway intact: Yes Vital signs: Temperature 97.7 F Pulse Rate 66 Respiratory Rate 16 Blood Pressure 113/50 Pulse Oximetry 98 Oxygen Delivery Me thod Room Air Oxygen Flow Rate Fraction of Inspir ed Oxygen Hydration adequate: Yes Nausea and vomiting: No Pain level: 1 Mental status: Baseline
--- NOTE | 2024-12-05 12:30 | PM.OP ---
Operative Report Date of procedure: December 05, 2024 Pre-op diagnosis: 39 weeks gestation Previous x two For repeat Desires permanent sterilization Post-op diagnosis: same Post-op findings: Vigorous male Breech presentation Normal placenta and cord Normal uterus and ovaries Normal right fallopian tube Left fallopian tube attenuated with no obvious fimbria Procedure done: Repeat low-transverse Bilateral salpingectomy Implants: none Specimens removed/disposition: bilateral fallopian tubes, sent to pathology placenta and cord, discarded Surgeon: Rufino Aldrich MD Anesthesia: Spinal Estimated blood loss (mL): 500 Complications: none Findings: Vigorous male Breech presentation Normal placenta and cord Normal uterus and ovaries Normal right fallopian tube Left fallopian tube attenuated with no obvious fimbria Condition: stable Disposition: floor Brief History: 24 y.o. at 39 weeks h/o c-sections x two wants permanent sterilization Procedure: Informed consent signed. Patient was taken to the operating room, placed supine in the left lateral tilt position. Spinal anesthesia and a Bird catheter were already placed. The abdomen was prepped and draped in the usual sterile fashion. A Pfannenstiel incision was made over an old scar and carried down through skin and subcutaneous tissue and fascia. The fascial incision was extended laterally with Corral scissors. The fascia was from the underlying rectus muscles. The rectus muscles were split in the midline. The peritoneum was entered bluntly avoiding underlying organs. A bladder flap was created. A low transverse uterine incision was made and extended laterally bluntly avoiding the uterine vessels. Clear amniotic fluid was seen. The baby was delivered in breech presentation atraumatically. The baby was suctioned. The cord was clamped and cut and the baby was handed to an awaiting staff. Cord blood was obtained. The placenta was manually removed intact. The uterus was not exteriorized. The uterine cavity was bluntly curetted with wet laps. The uterine incision was then closed with a continuous interlocking stitich of O chromic. Adequate hemostasis was seen. No bleeding was seen. Attention was then turned to the bilateral tubal ligation. The left fallopian tube was seen to be attenuated, thin, and no definite fimbria could be identified. The presumed left fallopian tube was identified via its anatomic position and was excised using a Ligasure device. The right fallopian tube was seen to be normal and was identified to its fimbrial end. The right fallopian tube was excised using a Ligasure device. Both tubes were sent to pathology. No bleeding was seen. The uterine incision was again inspected and found to have good hemostasis. Inspection of the tubal ligation sites and the uterine incision showed adequate hemostasis. The fascia was then closed with a continuous stitch of O-Vicryl. Additional interrupted stitches of O-Vicryl were used for fascial closure. The subcutaneous tissue was irrigated and inspected for hemostasis. The skin was then reapproximated using Insorb natali. Postoperative condition stable Disposition to recovery room Estimated blood loss 500 cc, no replacement Sponge, needle, and instrument counts were correct x two There were no complications
[2024-12-05] MEDS: dextrose 5%-lactated ringers 1,000 ML 125 ML IV (12:36)
[2024-12-05] MEDS: HYDROcodone-acetaminophen 5-325 mg Tablet PO (15:06)
[2024-12-05] MEDS: ketorolac 30 mg/mL INJ IVP ×2 (16:10→22:15)
[2024-12-05] MEDS: simethicone 80 mg Chew PO (22:15)
[2024-12-06] VITALS: BP 92/49; PULSE 65; RESP 16; TEMP 36.6; O2SAT 96
[2024-12-06 03:35] VITALS: BP 99/55; PULSE 74; PULSE 86; RESP 16; TEMP 36.7; O2SAT 98
[2024-12-06] MEDS: ketorolac 30 mg/mL INJ IVP (03:53)
[2024-12-06 04:01] LABS: Hematocrit 26.2 % (36-47); Mean Corpuscular HGB Conc 32.4 g/dL (30-55); Mean Corpuscular Hemoglobin 29.4 pg (27-33); Mean Corpuscular Volume 90.7 fl (85-98); Mean Platelet Volume 10.9 fL (7.4-10.4); Platelet Count 162 10^3/cmm (157-399); Red Blood Count 2.89 10^6/uL (3.85-5.65); Red Cell Distribution Width 12.9 % (12.1-15.1); White Blood Count 9.89 10^3/uL (3.29-11.43)
[2024-12-06] MEDS: HYDROcodone-acetaminophen 5-325 mg Tablet PO (04:30)
[2024-12-06 09:50] VITALS: BP 115/67; PULSE 80; RESP 16; TEMP 36.7
[2024-12-06] MEDS: PRENATAL VIT NO.130/IRON/FOLIC 1 EACH TABLET PO (09:50)
[2024-12-06] MEDS: docusate sodium 100 mg Capsule PO (09:50)
[2024-12-06] MEDS: ibuprofen 800 mg tablet PO (12:00)
--- NOTE | 2024-12-06 12:05 | P.PN_ITS ---
[employer]PERVIS[employer] Subjective 2 Subjective: Interval history: no c/o eating, voiding, ambulating well mild incisional pain well-controlled with pain medications no dizziness, weakness, palpitations, shortness of breath no bleeding wants to go home without any difficulties Labor: Amniotic Membrane Status: Intact Monitor Mode: External C ontraction Pattern: Irregular Vitals/I&O/Wt Last Vital Signs Temp 98.8 F 12/06/24 16:07 Pulse 88 12/06/24 16:07 Resp 16 12/06/24 16:07 BP 124/68 12/06/24 16:07 Pulse Ox 98 12/06/24 03:35 O2 Del Method Room Air 12/06/24 00:00 12/06/24 12/06/24 12/06/24 06:59 14:59 22:59 Output Total 350 / 1640 Balance -350 / 160 Weight last 48 hrs Weight 214 lb Physical Exam 2 Narrative: Exam: comfortable, awake, alert, ambulating afebrile, VS normal Abd: soft, nontender wound clean and dry Ext: normal Hgb this a.m. 8.5 Urinary Catheter Management: Bird: Cath Placed During This Visit: yes, but has since been removed by the nurse Reason for Continuing Indwelling Catheter: Accurate Measurement of Urinary Output in Critically Ill Patients Urinary Catheter Date of Insertion: 12/05/24 Urinary Catheter Time of Insertion: 10:00 Date Urinary Catheter Removed: 12/06/24 Time Urinary Catheter Discontinued: 03:50 Data 12/06/24 03:40 A&P Assessment and plan (1) S/P : POD #1 RCS, bilateral salpingectomy doing well discharge to home today instructions and precautions given call/return if fever, chills, nausea, vomiting, headaches, abdominal pain, bleeding, inability to void, swelling, leg pain; feelings of depression or mood changes; wound redness, swelling, or discharge; chest pain; shortness of breath f/u in 1 week or PRN (2) Anemia: take iron BID eat iron-rich foods call / return if dizziness, weakness, palpitations, shortness of breath, chest pain PDMP PDMP Reviewed: Not Reviewed Attestations 2 Medical Necessity Statement*: patient s/p repeat and bilateral salpingectomy, plan to discharge to home today Coding Level of Care Code Acute Code for Chg Fwd Diagnoses S/P Z98.891 Anemia D64.9 Time Spent (min) 20
--- NOTE | 2024-12-06 12:10 | PM.OBGYDC ---
Discharge Providers ACCOUNTING POLICY CONSULTANT Date of Admission: 12/05/24 07:10 Date of Discharge: 12/06/24 Attending Provider at Admission: Rufino Aldrich MD Attending Provider at Discharge: Rufino Aldrich MD Consults: none Primary ACCOUNTING POLICY CONSULTANT: Neo Monge Diagnoses at Discharge Discharge Diagnosis (1) S/P : Details from hospital stay: patient at 39 weeks with h/o two previous c-sections and desired permanent sterilization there were no complications patient underwent repeat and bilateral salpingectomy without any complications patient did well postoperatively and was discharged to home on the first postoperative day Status: Acute (2) Anemia: Details from hospital stay: patient with Hgb of 8.5 on the first postoperative day She was instructed to take iron BID and to eat iron-rich foods call / return if dizziness, weakness, palpitations, shortness of breath, chest pain Status: Acute Reason for Visit Reason for Visit: Epi Consult Brief History: patient at 39 weeks with h/o two previous c-sections and desired permanent sterilization there were no complications patient was admitted for repeat and bilateral salpingectomy Hospital Course Hospital Course patient at 39 weeks with h/o two previous c-sections and desired permanent sterilization there were no complications patient underwent repeat and bilateral salpingectomy without any complications patient did well postoperatively and was discharged to home on the first postoperative day Information Peripartum Data: Infant Delivery Method: Laceration description: None Episiotomy description: None complications: none Physical Exam Narrative: comfortable, awake, alert, ambulating afebrile, VS normal Abd: soft, nontender wound clean and dry Ext: normal Urinary Catheter Management: Bird: Cath Placed During This Visit: yes, but has since been removed by the nurse Reason for Continuing Indwelling Catheter: Accurate Measurement of Urinary Output in Critically Ill Patients Urinary Catheter Date of Insertion: 12/05/24 Urinary Catheter Time of Insertion: 10:00 Date Urinary Catheter Removed: 12/06/24 Time Urinary Catheter Discontinued: 03:50 History History History 3 Term 1 1 Miscarriages/Ectopic 0 Living Children 2 Discharge Data Studies Completed and Pending Pending at discharge Category Date Time Status Pathology: Surgical [PTH] Routine Pth 12/05/24 11:45 Received Laboratory Results WBC 9.89 10^3/uL (3.29-11.43) 12/06/24 03:40 RBC 2.89 10^6/uL (3.85-5.65) L 12/06/24 03:40 Hgb 8.50 g/dL (11.27-16.99) L 12/06/24 03:40 Hct 26.2 % (36-47) L 12/06/24 03:40 MCV 90.7 fl (85-98) 12/06/24 03:40 MCH 29.4 pg (27-33) 12/06/24 03:40 MCHC 32.4 g/dL (30-55) 12/06/24 03:40 RDW 12.9 % (12.1-15.1) 12/06/24 03:40 Plt Count 162 10^3/cmm (157-399) 12/06/24 03:40 MPV 10.9 fL (7.4-10.4) H 12/06/24 03:40 Neut % (Auto) 69.4 % 12/05/24 07:30 Lymph % (Auto) 23.7 % 12/05/24 07:30 Marshall % (Auto) 5.1 % 12/05/24 07:30 Eos % (Auto) 0.9 % 12/05/24 07:30 Baso % (Auto) 0.4 % 12/05/24 07:30 Neut # (Auto) 7.42 10^3/uL (1.8-7.7) 12/05/24 07:30 Lymph # (Auto) 2.5 10^3/uL (0.8-4.8) 12/05/24 07:30 Marshall # (Auto) 0.5 10^3/uL (0.2-0.9) 12/05/24 07:30 Eos # (Auto) 0.1 10^3/uL (0.0-0.8) 12/05/24 07:30 Baso # (Auto) 0.0 10^3/uL (0.0-0.1) 12/05/24 07:30 Nucleated RBC % (auto) 0 % 12/05/24 07:30 Nucleated RBCs # 0.0 /100WBC 12/05/24 07:30 Blood Type O Positive 12/05/24 07:30 Rho(D) Type Rh positive 12/05/24 07:30 Antibody Screen Negative 12/05/24 07:30 Procedures Performed repeat low-transverse bilateral salpingectomy Vitals Last Vital Signs Temp 98.8 F 12/06/24 16:07 Pulse 88 12/06/24 16:07 Resp 16 12/06/24 16:07 BP 124/68 12/06/24 16:07 Pulse Ox 98 12/06/24 03:35 O2 Del Method Room Air 12/06/24 00:00 Results Labs OB ([facility]): Obstetrics US 11/04/24 Blood Type O Positive 12/05/24 Antibody Screen Negative 12/05/24 Hct 26.2 % (36-47) L 12/06/24 Hgb 8.50 g/dL (11.27-16.99) L 12/06/24 Rho(D) Type Rh positive 12/05/24 Plt Count 162 10^3/cmm (157-399) 12/06/24 Hep Bs Antigen Non-reactive (Nonreactive) 08/01/24 Hepatitis C Antibody Non-reactive (Nonreactive) 08/01/24 Rubella IgG Antibody 39.3 IU/mL (0.0-10.0) H 08/01/24 RPR Nonreactive (Nonreactive) 08/01/24 HIV 1&2 Ab & HIV 1 Ag Non-reactive (Non-Reactiv) 08/01/24 C.trachomatis RNA (TMA) Not detected (NOT DETECTED) 08/01/24 N.gonorrhoeae RNA (TMA) Not detected (NOT DETECTED) 08/01/24 T. vaginalis Amp RNA Not detected (NOT DETECTED) 08/01/24 Chlamydia/GC Comment See note 08/01/24 Glucose 1 Hr 50 gm 86 mg/dL (85-140) 09/23/24 HCG, Qual Positive (Negative) H 08/01/24 Urine Opiates Screen Negative ng/mL (Negative) 08/01/24 Ur Barbiturates Screen Negative ng/mL (Negative) 08/01/24 Ur Phencyclidine Scrn Negative ng/mL (Negative) 08/01/24 Ur Amphetamines Screen Negative ng/mL (Negative) 08/01/24 U Benzodiazepines Scrn Negative ng/mL (Negative) 08/01/24 Urine Cocaine Screen Negative ng/mL (Negative) 08/01/24 U Marijuana (THC) Screen Positive ng/mL (Negative) H 08/01/24 Micro Urine Specimen 08/01/24 Discharge Plan Discharge Patient Disposition: Home Condition: Stable Prescriptions: Continued [id number] oil 400 mcg-35 mg -25 mg-5 mg tablet,chewable 1 tab PO 1XD Discharge Orders: Discharge Order (Routine); Ordered 12/06/24 Ordered By: Rufino Aldrich Referrals: Daria Lovell HAND CANDLE MOLDER [Nurse Practitioner] - 12/19/24 10:45 am (6 week - 01-02-2025 @ 10:45) Discharge Diet: Usual diet Discharge Activity: Increase activity as tolerated Patient Instructions: Depression (DC), Opioid Safety (DC), Preeclampsia and Eclampsia After Delivery (GEN), Hemorrhage (DC), OB [facility], OB Discharge Report, OB Food/Drug Interaction Guide, Opioid Safety, OB Home Care, Abnormal Bleeding Discharge Attestations ACCOUNTING POLICY CONSULTANT Time Spent in Discharge Care*: less than 30 min Coding Level of Care Code Acute Code for Chg Fwd Diagnoses S/P Z98.891 Anemia D64.9 Time Spent (min) 20
[2024-12-06 15:51] VITALS: BP 124/68; PULSE 88
[2024-12-06 16:07] VITALS: BP 124/68; PULSE 88; RESP 16; TEMP 37.1
--- NOTE | 2024-12-06 16:16 | PC.NURSE ---
1600 PATIENT DID NOT HAVE IV UPON ASSESSMENT.
[2024-12-06 16:45] VITALS: BP 124/68; PULSE 88; RESP 16; TEMP 37.1; O2SAT 98
--- NOTE | 2024-12-11 08:53 | PC.NURSE ---
Bicitra was not given per orders from Dr. Vaca on 12/05/24 prior to the .
== END 2024-12-06 16:45 | disposition home or self-care (01) | DRG 785 ==
PROVIDERS: Admitting Provider Obstetrics & Gynecology; Visit Provider Obstetrics & Gynecology
PROC: 10D00Z1 Extraction of Products of Conception, Low, Open Approach (ICD-10-PCS; CPT 59514; principal; 2024-12-05 10:00)
DX: O34.211 Maternal care for low transverse scar from previous cesarean delivery (principal); Z3A.39 39 weeks gestation of pregnancy; Z37.0 Single live birth; O99.02 Anemia complicating childbirth; Z87.891 Personal history of nicotine dependence; Z30.2 Encounter for sterilization
CPT/HCPCS: 36415; 51702; 59025; 59409; 85025; 85027; 86850; 86900; 88302; 96374; 96376; J0690; J1885; J2274; J2371; J2405; J2765; J3010; J3490; J7120; J7121

== ENCOUNTER 2025-01-28 10:50 | Outpatient (CLI) | payer MEDICAID, SELFPAY ==
--- NOTE | 2025-01-28 10:45 | FL_ITS ---
WS: [id number] Exam: [place] hysterosalpingography [id number] Date/Time of Exam: 01/28/2025 11:32 AM Reason For Exam: Z98.51 - Tubal ligation status Fluoroscopy time: 2min [id number] minutes # of spot films: Hysterosalpingogram procedure was performed by Dr. Aldrich from the department of obstetrics. Opacification of the uterus shows immediate venous reflux of contrast. A questionable small segment of the LEFT fallopian tube is identified. This may represent a small vein or the fallopian tube. The uterus is elongated secondary to state. There was no other sign of fallopian tube opacification. Recommendations: It is recommended that the patient be placed on the appropriate control and a repeat hysterosalpingogram in several weeks to again evaluate tubal patency. These findings and recommendations were discussed by phone with Dr. Aldrich the attending assembler leather goods on 01/29/2025 at 9:42 a.m. FL/FL hysterosalpingography [id number] IMPRESSION: 1. Questionable opacification of a short length of the LEFT fallopian tube. Thi s may represent a small vein. There was extensive venous reflux of contrast in the pelvis secondary to state. No other sign of fallopian tube opaci fication. The uterus was elongated secondary to state. Overall, the exam is suboptimal to confirm fallopian tube occlusion.
== END 2025-01-28 10:51 | disposition home or self-care (01) ==
PROVIDERS: Visit Provider Obstetrics & Gynecology
DX: Z98.51 Tubal ligation status (principal); N85.8 Other specified noninflammatory disorders of uterus; R93.89 Abnormal findings on diagnostic imaging of other specified body structures
CPT/HCPCS: 74740